=== PATIENT | female | born 1960 | race Two or more races ===

== ENCOUNTER 2018-08-09 13:54 | Emergency (ER) | payer MEDICAID ==
[~2018-08-09] VITALS: Ht 157.5 cm; Wt 77.1 kg
[2018-08-09] MEDS ORDERED: Ketorolac 30mg Inj IM ONE (14:15)
[2018-08-09] MEDS ORDERED: Methocarbamol 500mg tab ORAL ONE (14:15)
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
[2018-08-09] MEDS ORDERED: LIDODERM700 M1 TOPIC (15:07)
[2018-08-09] MEDS ORDERED: ROBAXIN-750750 MG PO (15:07)
[2018-08-09] MEDS ORDERED: IBUPROFEN600 MG ORAL (15:07)
[2018-08-09 15:30] VITALS: BP 135/77
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
== END 2018-08-09 15:30 | disposition home or self-care (01) ==
LOC: EDBD 13:54 → EMR 15:30
DX: S16.1XXA Strain of muscle, fascia and tendon at neck level, initial encounter (principal); S29.012A Strain of muscle and tendon of back wall of thorax, initial encounter; T14.8XXA Other injury of unspecified body region, initial encounter; V43.52XA Car driver injured in collision with other type car in traffic accident, initial encounter; Y92.411 Interstate highway as the place of occurrence of the external cause; Z88.6 Allergy status to analgesic agent; Z88.5 Allergy status to narcotic agent
CPT/HCPCS: 96372; 99283; J1885